=== PATIENT | male | born 1960 | race Caucasian/White ===

== ENCOUNTER 2017-01-22 07:15 | Day surgery (SDC) | payer OTHER ==
[~2017-01-22] VITALS: Ht 182.9 cm; Wt 114.0 kg
[~2017-01-22 07:15] MED LIST: LISI-567 PO; Sodium Chloride LOK Flush 10 mL Syringe IV PRN; fentaNYL-PF 50 mCg/mL 2 mL Inj IVPUSH PRN
[2017-01-22 07:35] VITALS: BP 129/75; PULSE 52; RESP 20; O2SAT 97
[2017-01-22] MEDS: 0.9% Sodium Chloride 1,000 ML IV SCH ×2 (08:03→08:47)
[2017-01-22 09:01] VITALS: BP 109/69; PULSE 53; RESP 12; O2SAT 95
[2017-01-22 09:11] VITALS: BP 114/69; PULSE 52; RESP 12; O2SAT 96
[2017-01-22 09:21] VITALS: BP 112/69; PULSE 52; RESP 14; O2SAT 95
--- NOTE | 2017-01-22 09:23 | ENDO ---
[address] [address] ENDOSCOPY PROCEDURE PATIENT: MYKEL MOSER : 1960 MR#: [id number] ADMIT: 01/22/2017 JOB ID: [id number] PROCEDURE: Colonoscopy. INDICATION: The patient with a family history of colon cancer. Father had colon cancer at the age of 42. ASA CLASSIFICATION: 2. MALLAMPATI SCORE: 2. MEDICATION: Versed 5 mg and 100 mcg. INSTRUMENT USED: [id number]. PREPARATION QUALITY: Good. PROCEDURE DETAILS: After informed consent was obtained, the patient was brought to the GI suite, where he was placed on oxygen via nasal cannula and monitored with continuous pulse oximeter, telemetry, and blood pressure monitoring. A time-out was performed. Then, he was placed in a left lateral decubitus position and medications were administered for sedation. Digital rectal exam was performed, which was unremarkable. I was unable to palpate the prostate secondary to the patient's body habitus. The colonoscope was then inserted into the rectum and advanced under direct visualization to the cecum, which was identified by the presence of ileocecal valve and appendiceal orifice. Once the cecum was reached, the colonoscope was withdrawn back into the rectum as the mucosa and lumen were examined. In the rectum, retroflexion was performed. Following retroflexion, remaining air in the rectum was suctioned, and procedure was completed. FINDINGS: 1. In the transverse colon, there was a diminutive polyp that was removed with cold biopsy forceps. 2. In the descending colon, there was an approximately 4 mm sessile polyp that was removed with a cold snare. 3. Retroflexed views in the rectum revealed internal hemorrhoids which were moderate in size. IMPRESSION: 1. Transverse colon polyp. 2. Descending polyp. 3. Moderate-sized internal hemorrhoids. RECOMMENDATIONS: 1. Repeat colonoscopy in five years. 2. Fiber rich diet. COMPLICATIONS: None. ESTIMATED BLOOD LOSS: Less than 5 mL.
[2017-01-22 09:28] VITALS: BP 111/88; PULSE 53; O2SAT 96
--- NOTE | 2017-01-29 10:57 | PATH ---
SURGICAL PATHOLOGY Attending Physician:Bereket Ospina CASE STATUS: Signed Out PATIENT NAME: MYKEL MOSER PID: [id number] : 1960 DATE COLLECTED:01/22/2017 20:45 SPECIMEN: 1: Colon, Biopsy 2: Colon, Biopsy CLINICAL HISTORY: COLON POLYPS 1). TRANSVERSE COLON POLYP 2). DESCENDING COLON POLYP FINAL DIAGNOSIS: 1.TRANSVERSE COLON, POLYP, BIOPSY: TUBULAR ADENOMA. 2.DESCENDING COLON, POLYP, BIOPSY: BENIGN SPINDLE CELL LESION, MOST CONSISTENT WITH INFLAMMATORY FIBROID POLYP. Negative for epithelial dysplasia, atypia, and malignancy. ICD10 codeD12.3 D12.4 NOTE: B. Inflammatory fibroid polyps are benign lesions considered to be reactive in nature and seldom recur after excision. Dr. Mitchell discussed preliminary findings with Dr. Cordova on 01/28/2017. GROSS DESCRIPTION: The specimen is received in two formalin filled containers labeled with the patient's name. 1). The specimen is sublabeled "transverse colon polyp" and consists of a 0.2 x 0.2 x 0.2 CM portion of tissue which is entirely submitted in cassette 1A. 2). The specimen is sublabeled "descending colon polyp" and consists of a 0.3 x 0.2 x 0.2 CM portion of tissue which is entirely submitted in cassette 2A. 01/22/2017 DAC MICRO DESCRIPTION: Immunohistochemical stains were performed to characterize the spindled cells. All control stains showed appropriate reactivity. Results: S100:Negative Smooth muscle actin:Negative CD45:Negative, highlights lymphocytes CHARISMA:Negative CD34:Uniformly positive CD117:Negative DOG1:Negative Interpretation: The combined morphologic and immunophenotypic pattern is most compatible with an inflammatory fibroid polyp. This test was developed and its performance characteristics determined by [facility]. It has not been cleared or approved by the [place]. Food and Drug Administration. The FDA has determined that such clearance or approval is not necessary. This test is used for clinical purposes. It should not be regarded as investigational or for research. ICD-9 CODES: CPT CODES: 1: 29246 2: 17385, 87952, 63678, 03234, 78183, 43155, 20981, 94152 Electronically Signed Out Ana Mitchell MD [facility] [address], [place] [address] Technical component performed at [facility], [address], [place], [address]
== END 2017-01-22 23:59 | disposition home or self-care (01) ==
LOC: END 07:15
PROVIDERS: ATTEND Internal Medicine Gastroenterology
DX: Z12.11 Encounter for screening for malignant neoplasm of colon (principal); Z86.010 Personal history of colon polyps; Z80.0 Family history of malignant neoplasm of digestive organs; D12.3 Benign neoplasm of transverse colon; K64.8 Other hemorrhoids
CPT/HCPCS: 45380; 45385; G0500; J7030